=== PATIENT | male | born 1960 | race Caucasian/White ===

== ENCOUNTER 2019-09-08 12:03 | Emergency (ER) | payer OTHER ==
[2019-09-08] MEDS ORDERED: CEFAZOLIN/SWI 1gm 1 GM/10 ML SYR ONE (12:18)
[2019-09-08] MEDS ORDERED: TETANUS & DIPHTHERIA TOX,ADULT 0.5 ML VIAL ONE (12:18)
[2019-09-08] MEDS ORDERED: FENTANYL CITR 100 MCG/2 ML ONE (12:18)
[2019-09-08] MEDS ORDERED: NA CHLORIDE 0.9% 1,000 ML ONE (12:18)
--- NOTE | 2019-09-08 12:34 | RAD REPORT ---
EXAM DESCRIPTION: CT - CTHCSPWOC - 09/08/2019 12:25 pm CLINICAL HISTORY: SMASH INJURY, fall, head and neck injury, trauma to right side of head COMPARISON: No comparisons TECHNIQUE: Axial 5 mm thick images of the head were obtained. Axial 2 mm thick images of the cervic al spine were obtained with sagittal and coronal reconstruction images generated and reviewed. All CT scans are performed using dose optimization technique as appropriate and may include automated exposure control or mA/KV adjustment according to patient size. FINDINGS: No intracranial hemorrhage, mass, edema or acute intracranial finding. Ventricles are norm al. No sulcal effacement. No extra-axial fluid collections. Mastoid air cells and paranasal sinuses a re clear. No globe or orbit abnormality seen. Cervical body height and alignment are normal. C4-5, C5-6 and C6-7 disc space narrowing present with endplate spurring. There is mild bony foraminal encroachment at these levels. Degenerative changes ar e present at the dens C1 level. No fracture or acute bony abnormality. Central canal detail is inher ently limited. No paraspinal mass or hematoma. Calcifications in the left tonsil may reflect old infectious/ inflamm atory change. No active process suspected on this examination. IMPRESSION: No hemorrhage, edema or acute CT Head finding. Cervical spine degenerative change with no acute finding. Central canal detail is inherently limited.
--- NOTE | 2019-09-08 12:36 | RAD REPORT ---
EXAM DESCRIPTION: RAD - Forearm Right - 09/08/2019 12:30 pm CLINICAL HISTORY: Pain;Smash injury;Deformity COMPARISON: No comparisons FINDINGS: No abnormality seen at the elbow joint. Proximal and mid portions of the radius and ulna s how no suspicious findings. Distal ulna is intact. Patient has a comminuted fracture involving the ep iphysis and metaphysis portions of the radius. Multiple fracture planes are present. Sagittal fractur e line extends to the articular surface. There is impaction along the transverse fracture planes in t he epiphysis and metaphysis. There is depression of the radial articular surface near the ulna. No carpal bone fracture or dislocation seen. No pathologic bone component. No foreign body or other soft tissue abnormality. IMPRESSION: Comminuted distal radius fracture with multiple fracture plane seen. There is impaction at the fracture sites as well is depression of the radial articular surface near t he ulna.
--- NOTE | 2019-09-08 12:37 | RAD REPORT ---
EXAM DESCRIPTION: RAD - Forearm Left - 09/08/2019 12:30 pm CLINICAL HISTORY: SMASH INJURYfall, arm and wrist pain COMPARISON: None. FINDINGS: Proximal and midportion of the forearm are not imaged on this study. Distal ulna is intact . Carpal bones are intact. No metacarpal injury. There is no gross deformity of the distal radius. Fa int lucency is present at the articular surface. A fracture without displacement or angulation is mary pected. This involves the articular surface. No periosteal reaction. No foreign body or other soft tissue abnormality. IMPRESSION: Probable nondisplaced, nonangulated fracture involving the distal left radius.
--- NOTE | 2019-09-08 12:41 | RAD REPORT ---
EXAM DESCRIPTION: RAD - Chest Single View - 09/08/2019 12:30 pm CLINICAL HISTORY: TRAUMA Chest pain. COMPARISON: No comparisons FINDINGS: Portable technique limits examination quality. The lungs are grossly clear. The heart is normal in size. No displaced fractures. IMPRESSION: No acute intrathoracic process suspected.
--- NOTE | 2019-09-08 13:04 | EDPHYS ---
Physician Documentation [facility] Name: Elías Asencio Age: 59 yrs Sex: Male : 1960 Arrival Date: 09/08/2019 Time: 12:07 Bed 2 Private MD: ED Physician Mckinley Silva HPI: 09/07 12:19 This 59 yrs old Male presents to ER via Wheelchair with complaints of fall. snw 12:19 Trauma demographics: County: The injury occurred in [place] Location of Injury: The snw injury occurred at home, Date: September 08, 2019, Time: 12:00. Mechanism of injury: Fall: the patient fell from a ladder approximately approximately 5 feet. Associated injuries: The patient sustained injury to the head, abrasion, right arm, painful injury, left wrist, painful injury. Onset: The symptoms/episode began/occurred suddenly, just prior to arrival. The patient has not experienced similar symptoms in the past. It is unknown whether or not the patient has recently seen a physician. 12:20 Denies LOC. snw Historical: - Allergies: 12:14 No Known Allergies; aa5 - PMHx: 12:14 None; aa5 - PSHx: 12:14 None; aa5 - Immunization history:: Last tetanus immunization: unknown. - Social history:: Smoking status: Patient denies any tobacco usage or history of. - Immunization history: Last tetanus immunization: unknown. ROS: 12:17 Constitutional: Negative for fever, chills, and weight loss, Eyes: Negative for injury, snw pain, redness, and discharge, ENT: Negative for injury, pain, and discharge, Neck: Negative for injury, pain, and swelling, Cardiovascular: Negative for chest pain, palpitations, and edema, Respiratory: Negative for shortness of breath, cough, wheezing, and pleuritic chest pain, Abdomen/GI: Negative for abdominal pain, nausea, vomiting, diarrhea, and constipation, Back: Negative for injury and pain, : Negative for injury, bleeding, discharge, and swelling, Skin: Negative for injury, rash, and discoloration, Neuro: Negative for headache, weakness, numbness, tingling, and seizure. 12:17 MS/extremity: Positive for injury or acute deformity, contusion, pain, of the right arm and left arm. Exam: 12:15 Head/Face: Normocephalic, atraumatic. Eyes: Pupils equal round and reactive to light, snw extra-ocular motions intact. Lids and lashes normal. Conjunctiva and sclera are non-icteric and not injected. Cornea within normal limits. Periorbital areas with no swelling, redness, or edema. ENT: Nares patent. No nasal discharge, no septal abnormalities noted. Tympanic membranes are normal and external auditory canals are clear. Oropharynx with no redness, swelling, or masses, exudates, or evidence of obstruction, uvula midline. Mucous membranes moist. Neck: Trachea midline, no thyromegaly or masses palpated, and no cervical lymphadenopathy. Supple, full range of motion without nuchal rigidity, or vertebral point tenderness. No Meningismus. Chest/axilla: Normal chest wall appearance and motion. Nontender with no deformity. No lesions are appreciated. Green/yellow ecchymosis to right chest wall Cardiovascular: Regular rate and rhythm with a normal S1 and S2. No gallops, murmurs, or rubs. Normal PMI, no JVD. No pulse deficits. Respiratory: Lungs have equal breath sounds bilaterally, clear to auscultation and percussion. No rales, rhonchi or wheezes noted. No increased work of breathing, no retractions or nasal flaring. Abdomen/GI: Soft, non-tender, with normal bowel sounds. No distension or tympany. No guarding or rebound. No evidence of tenderness throughout. Back: No spinal tenderness. No costovertebral tenderness. Full range of motion. Skin: Warm, dry with normal turgor. Normal color with no rashes, no lesions, and no evidence of cellulitis. Neuro: Awake and alert, GCS 15, oriented to person, place, time, and situation. Cranial nerves II-XII grossly intact. Motor strength 5/5 in all extremities. Sensory grossly intact. Cerebellar exam normal. right ear pinna with abrasion. Denies LOC Psych: Awake, alert, with orientation to person, place and time. Behavior, mood, and affect are within normal limits. 12:15 Constitutional: The patient appears alert, awake, diaphoretic, in obvious pain, pale. 12:15 Musculoskeletal/extremity: Extremities: grossly normal except: noted in the dorsal aspect of right forearm: decreased ROM, deformity, tenderness, noted in the left wrist: contusion, tenderness, ROM: no acute changes, Circulation is intact in all extremities. Sensation intact. Vital Signs: 12:06 BP 134 / 87; Pulse 81; Resp 18; Pulse Ox 100% on R/A; em 12:07 Weight 92.99 kg (R); Height 6 ft. 3 in. (190.50 cm) (R); Pain 5/10; aa5 13:06 BP 121 / 69; Pulse 78; Resp 16; Temp 97.8(TE); Pulse Ox 100% ; mh5 12:07 Body Mass Index 25.62 (92.99 kg, 190.50 cm) aa5 Joey Coma Score: 12:07 Eye Response: spontaneous(4). Verbal Response: oriented(5). Motor Response: obeys jl7 commands(6). Total: 15. Trauma Score (Adult): 12:07 Eye Response: spontaneous(1); Verbal Response: oriented(1); Motor Response: obeys jl7 commands(2); Systolic BP: > 89 mm Hg(4); Respiratory Rate: 10 to 29 per min(4); Joey Score: 15; Trauma Score: 12 MDM: 12:22 Patient medically screened. snw 13:16 Data reviewed: vital signs, nurses notes. Data interpreted: Pulse oximetry: on room air snw is 100 %. Interpretation: normal. Counseling: I had a detailed discussion with the patient and/or guardian regarding: the historical points, exam findings, and any diagnostic results supporting the discharge/admit diagnosis, the presence of at least one elevated blood pressure reading (>120/80) during this emergency department visit, radiology results, the need for outpatient follow up, to return to the emergency department if symptoms worsen or persist or if there are any questions or concerns that arise at home. Special discussion: I have referred the patient to see his PCP for further evaluation of high blood pressure. Based on the patient's history, exam and DX evaluation, there is no indication for emergent intervention or inpatient TX. It is understood by the patient/guardian that if the SXs persist or worsen they need to return immediately for re-evaluation. Based on the history and exam findings, there is no indication for further emergent testing or inpatient evaluation. I discussed with the patient/guardian the need to see the orthopedic surgeon for further evaluation of the symptoms. I discussed with the patient/guardian the need to see the primary care provider for further evaluation of the symptoms. 09/07 12:12 Order name: CT Head C Spine; Complete Time: 12:35 snw 09/07 12:12 Order name: Chest Single View XRAY; Complete Time: 12:42 snw 09/07 12:12 Order name: Forearm Right XRAY; Complete Time: 12:38 snw 09/07 12:14 Order name: Forearm Left XRAY; Complete Time: 12:38 snw 09/07 12:43 Order name: Sugar Tong Forearm Splint: well padded to right; Complete Time: 13:12 snw 09/07 12:43 Order name: Wrist Splint: left - reinforce with filippo; Complete Time: 13:12 snw Administered Medications: 12:17 Drug: fentaNYL (PF) 50 mcg Route: IVP; Site: left antecubital; em 12:44 Follow up: Response: No adverse reaction; Marked relief of symptoms; Pain is decreased; em RASS: Alert and Calm (0) 12:43 Drug: NS 0.9% 1000 ml Route: IV; Rate: 125 ml/hr; Site: left antecubital; em 13:12 Follow up: IV Status: Order to discontinue infusion em 12:43 Drug: Ancef 1 grams Route: IVPB; Site: left antecubital; em 13:12 Follow up: Response: No adverse reaction; IV Status: Completed infusion; IV Intake: 10mlem 12:44 Drug: Tetanus-Diphtheria Toxoid Adult 0.5 ml {[employer]: [employer]. Exp: em 07/14/2021. Lot #: [id number]. } Route: IM; Site: left deltoid; 13:12 Follow up: Response: No adverse reaction em Disposition: 16:52 Co-signature as Attending Physician, Mckinley Silva MD I agree with the assessment and kdr plan of care. Disposition: 09/08/19 13:04 Discharged to Home. Impression: Displaced comminuted fracture of shaft of radius, right arm - distal, Nondisplaced fracture of left radial styloid process, Fall on and from ladder, Unspecified injury of head, Contusion of right shoulder, Abrasion of right ear. - Condition is Stable. - Discharge Instructions: Cast or Splint Care, Adult, Forearm Fracture, Head Injury, Adult, Fall Prevention in the Home, RICE for Routine Care of Injuries, Shoulder Pain, How to Use a Sling. - Prescriptions for Bactroban 2 % Topical Ointment - Apply to affected area 1 application by TOPICAL route every 12 hours; 15 gram. Tramadol 50 mg Oral Tablet - take 1 tablet by ORAL route every 8 hours as needed; 12 tablet. orphenadrine citrate 100 mg Oral Tablet Sustained Release - take 1 tablet by ORAL route 2 times per day As needed; 20 tablet. - Work release form, Medication Reconciliation Form, Thank You Letter, Antibiotic Education, Prescription Opioid Use form. - Follow up: Emergency Department; When: As needed; Reason: Worsening of condition. Follow up: Qouc Verduzco MD; When: 2 - 3 days; Reason: Recheck today's complaints, Continuance of care, Re-evaluation by your physician. Signatures: Dispatcher [employer] EDMS Mckinley Silva MD MD kdr Therrien, Shelly, PILE DRIVING NOZZLEMAN-C PILE DRIVING NOZZLEMAN-Csnw Aaron Quinones RN RN Cris Gupta RN RN aa5 Christie Muñoz RN RN jl7 Mikayla Tristan Corrections: (The following items were deleted from the chart) 12:19 12:15 Head/Face: Normocephalic, atraumatic. Eyes: Pupils equal round and reactive to snw light, extra-ocular motions intact. Lids and lashes normal. Conjunctiva and sclera are non-icteric and not injected. Cornea within normal limits. Periorbital areas with no swelling, redness, or edema. ENT: Nares patent. No nasal discharge, no septal abnormalities noted. Tympanic membranes are normal and external auditory canals are clear. Oropharynx with no redness, swelling, or masses, exudates, or evidence of obstruction, uvula midline. Mucous membranes moist. Neck: Trachea midline, no thyromegaly or masses palpated, and no cervical lymphadenopathy. Supple, full range of motion without nuchal rigidity, or vertebral point tenderness. No Meningismus. Chest/axilla: Normal chest wall appearance and motion. Nontender with no deformity. No lesions are appreciated. Green/yellow ecchymosis to right chest wall Cardiovascular: Regular rate and rhythm with a normal S1 and S2. No gallops, murmurs, or rubs. Normal PMI, no JVD. No pulse deficits. Respiratory: Lungs have equal breath sounds bilaterally, clear to auscultation and percussion. No rales, rhonchi or wheezes noted. No increased work of breathing, no retractions or nasal flaring. Abdomen/GI: Soft, non-tender, with normal bowel sounds. No distension or tympany. No guarding or rebound. No evidence of tenderness throughout. Back: No spinal tenderness. No costovertebral tenderness. Full range of motion. Skin: Warm, dry with normal turgor. Normal color with no rashes, no lesions, and no evidence of cellulitis. Neuro: Awake and alert, GCS 15, oriented to person, place, time, and situation. Cranial nerves II-XII grossly intact. Motor strength 5/5 in all extremities. Sensory grossly intact. Cerebellar exam normal. Normal gait. Psych: Awake, alert, with orientation to person, place and time. Behavior, mood, and affect are within normal limits. snw 12:50 12:36 Labs - recollect needed ordered. eb jl7 12:53 12:13 CBC+H.LAB.BRZ ordered. EDMS EDMS 12:54 12:13 TYPE AND SCREEN+BB.LAB.BRZ ordered. EDMS EDMS 12:54 12:13 BASIC METABOLIC PANEL+C.LAB.BRZ ordered. EDMS EDMS 13:28 13:04 09/08/2019 13:04 Discharged to Home. Impression: Displaced comminuted fracture of jl7 shaft of radius, right arm - distal; Nondisplaced fracture of left radial styloid process; Fall on and from ladder; Unspecified injury of head; Contusion of right shoulder; Abrasion of right ear. Condition is Stable. Forms are Medication Reconciliation Form, Thank You Letter, Antibiotic Education, Prescription Opioid Use. Follow up: Emergency Department; When: As needed; Reason: Worsening of condition. Follow up: Quoc Verduzco; When: 2 - 3 days; Reason: Recheck today's complaints, Continuance of care, Re-evaluation by your physician. snw
--- NOTE | 2019-09-08 13:04 | ER ---
Nurse's Notes [facility] Name: Elías Asencio Age: 59 yrs Sex: Male : 1960 Arrival Date: 09/08/2019 Time: 12:07 Bed 2 Private MD: Diagnosis: Displaced comminuted fracture of shaft of radius, right arm-distal;Nondisplaced fracture of left radial styloid process;Fall on and from ladder;Unspecified injury of head;Contusion of right shoulder;Abrasion of right ear Presentation: 09/07 12:07 Chief complaint: Patient states: "I fell from my barn's roof about 8 feet". Pt reports aa5 he hit his head, denies LOC. Pt c/o ephraim wrist pain. 12:07 Coronavirus screen: Proceed with normal triage. Ebola Screen: Patient negative for aa5 fever greater than or equal to 101.5 degrees Fahrenheit, and additional compatible Ebola Virus Disease symptoms. Risk Assessment: Do you want to hurt yourself or someone else? Patient reports no desire to harm self or others. Onset of symptoms was September 08, 2019. 12:07 Method Of Arrival: Wheelchair aa5 12:07 Acuity: MARTHA 2 aa5 12:07 Care prior to arrival: None. Mechanism of Injury: Fall from roof. Trauma event details: aa5 Injury occurred in the [facility], Injury occurred: at home. 12:29 Initial Sepsis Screen: Does the patient meet any 2 criteria? No. Patient's initial jl7 sepsis screen is negative. Does the patient have a suspected source of infection? No. Patient's initial sepsis screen is negative. Trauma Activation: Alert Physician: ED Physician; Name: ; Notified At: ; Arrived At: Physician: General Surgeon; Name: ; Notified At: ; Arrived At: Physician: Radiology; Name: ; Notified At: ; Arrived At: Physician: Respiratory; Name: ; Notified At: ; Arrived At: Physician: Lab; Name: ; Notified At: ; Arrived At: Historical: - Allergies: 12:14 No Known Allergies; aa5 - PMHx: 12:14 None; aa5 - PSHx: 12:14 None; aa5 - Immunization history:: Last tetanus immunization: unknown. - Social history:: Smoking status: Patient denies any tobacco usage or history of. - Immunization history: Last tetanus immunization: unknown. Screenin:07 Abuse screen: Denies threats or abuse. Denies injuries from another. Tuberculosis jl7 screening: No symptoms or risk factors identified. 13:00 Nutritional screening: No deficits noted. Fall Risk IV access (20 points). Total Reaves jl7 Fall Scale indicates No Risk (0-24 pts). Primary Survey: 12:07 NO uncontrolled hemorrhage observed. Breathing/Chest: Respiratory pattern: regular, jl7 Respiratory effort: spontaneous, unlabored, Chest inspection: symmetrical rise and fall of the chest. Circulation: Pulses: palpable right radial artery and left radial artery. Skin color: pink, Skin temperature: warm. Disability Alert. Exposure/Environment: All clothing and personal items were removed. Forensic evidence collection is not deemed to be indicated at this time. Items placed in patient belonging bag. 12:30 Reassessment Breathing/Chest Respiratory pattern Regular Respiratory effort Spontaneous jl7 Unlabored Chest inspection Symmetrical Circulation Color [place] Temperature Warm. Assessment: 12:07 General: Appears in no apparent distress. uncomfortable, Behavior is calm, cooperative, jl7 appropriate for age. Pain: Complains of pain in left wrist and right arm Pain currently is 5 out of 10 on a pain scale. Neuro: Level of Consciousness is awake, alert, obeys commands, Oriented to person, place, time, situation. Cardiovascular: Patient's skin is warm and dry. Pulses are palpable in right radial artery and left radial artery. Respiratory: Airway is patent Respiratory effort is even, unlabored, Respiratory pattern is regular, symmetrical. Derm: Skin is pink, warm \\T\\ dry. 12:15 Reassessment: x-ray at bedside. em Vital Signs: 12:06 BP 134 / 87; Pulse 81; Resp 18; Pulse Ox 100% on R/A; em 12:07 Weight 92.99 kg (R); Height 6 ft. 3 in. (190.50 cm) (R); Pain 5/10; aa5 13:06 BP 121 / 69; Pulse 78; Resp 16; Temp 97.8(TE); Pulse Ox 100% ; mh5 12:07 Body Mass Index 25.62 (92.99 kg, 190.50 cm) aa5 Joey Coma Score: 12:07 Eye Response: spontaneous(4). Verbal Response: oriented(5). Motor Response: obeys jl7 commands(6). Total: 15. Trauma Score (Adult): 12:07 Eye Response: spontaneous(1); Verbal Response: oriented(1); Motor Response: obeys jl7 commands(2); Systolic BP: > 89 mm Hg(4); Respiratory Rate: 10 to 29 per min(4); Joey Score: 15; Trauma Score: 12 ED Course: 12:07 Patient arrived in ED. jl7 12:07 Arm band placed on. aa5 12:07 Patient has correct armband on for positive identification. Placed in gown. Bed in low jl7 position. Call light in reach. Side rails up X2. 12:07 Patient maintains SpO2 saturation greater than 95% on room air. Thermoregulation: warm jl7 blanket given to patient. 12:09 Mckinley Silva MD is Attending Physician. kdr 12:10 Olga Donaldson FNP-C is PHCP. snw 12:14 Triage completed. aa5 12:25 CT Head C Spine In Process Unspecified. EDMS 12:26 Christie Muñoz, ARTURO is Primary Nurse. jl7 12:30 Chest Single View XRAY In Process Unspecified. EDMS 12:30 Forearm Right XRAY In Process Unspecified. EDMS 12:30 Forearm Left XRAY In Process Unspecified. EDMS 12:30 Initial lab(s) drawn, by me, sent to lab. Inserted saline lock: 20 gauge in left jl7 antecubital area, using aseptic technique. Blood collected. 12:30 T\\T\\S collected, blood band applied to patient. jl7 13:01 Quoc Verduzco MD is Referral Physician. snw 13:18 Orthoglass splint: Sugar tong splint applied on right arm. Velcro wrist splint applied mh5 to left wrist. Sling applied to. 13:26 No provider procedures requiring assistance completed. IV discontinued, intact, jl7 bleeding controlled, No redness/swelling at site. Pressure dressing applied. Administered Medications: 12:17 Drug: fentaNYL (PF) 50 mcg Route: IVP; Site: left antecubital; em 12:44 Follow up: Response: No adverse reaction; Marked relief of symptoms; Pain is decreased; em RASS: Alert and Calm (0) 12:43 Drug: NS 0.9% 1000 ml Route: IV; Rate: 125 ml/hr; Site: left antecubital; em 13:12 Follow up: IV Status: Order to discontinue infusion em 12:43 Drug: Ancef 1 grams Route: IVPB; Site: left antecubital; em 13:12 Follow up: Response: No adverse reaction; IV Status: Completed infusion; IV Intake: 10mlem 12:44 Drug: Tetanus-Diphtheria Toxoid Adult 0.5 ml {[employer]: [employer]. Exp: em 07/14/2021. Lot #: [id number]. } Route: IM; Site: left deltoid; 13:12 Follow up: Response: No adverse reaction em Intake: 12:30 PO: 0ml; IV: 0ml; Tubes: 0ml (); Total: 0ml. jl7 13:12 IV: 10ml; Total: 10ml. em Output: 12:30 Urine: 0ml; Gastric: 0ml; Stool: 0; EBL: 0ml; Drainage: 0ml; Other: 0; Total: 0ml. jl7 Outcome: 13:04 Discharge ordered by . rodríguez 13:26 Discharged to home ambulatory, with family. jl7 13:26 Condition: stable 13:26 Patient's length of stay was not longer than 2 hours. 13:28 Discharge instructions given to patient, Instructed on discharge instructions, follow jl7 up and referral plans. medication usage, Demonstrated understanding of instructions, follow-up care, medications, Prescriptions given X 3. 13:28 Patient left the ED. jl7 Signatures: Dispatcher [employer] Mckinley Fregoso MD MD kdr Therrien, Shelly, HIGH SCHOOL SOCIAL STUDIES TEACHER-C HIGH SCHOOL SOCIAL STUDIES TEACHER-Csnw Aaron Quinones, RN RN Cris Gupta, RN RN Umu Álvarez Jahala, RN RN jl7
[2019-09-08 13:38] VITALS: O2SAT 100
[2019-09-08 13:41] VITALS: BP 121/69; TEMP 97.8
== END 2019-09-08 13:28 | disposition home or self-care (01) ==
LOC: ER 12:03
PROC: 2W3CX1Z Immobilization of Right Lower Arm using Splint (ICD-10-PCS; principal; 2019-09-08)
PROC: 2W3DX1Z Immobilization of Left Lower Arm using Splint (ICD-10-PCS; 2019-09-08)
DX: S52.351A Displaced comminuted fracture of shaft of radius, right arm, initial encounter for closed fracture (principal); S52.515A Nondisplaced fracture of left radial styloid process, initial encounter for closed fracture; S09.90XA Unspecified injury of head, initial encounter; S40.011A Contusion of right shoulder, initial encounter; W11.XXXA Fall on and from ladder, initial encounter; Y93.9 Activity, unspecified; Y92.009 Unspecified place in unspecified non-institutional (private) residence as the place of occurrence of the external cause; Z23 Encounter for immunization
CPT/HCPCS: 96365; 70450; 72125; 71045; 73090 ×2; 90471; 90714; 96375; 99284; 29125 ×2; J3010; J0690; J7030